=== PATIENT | female | born 1985 | race Caucasian/White ===

== ENCOUNTER 2019-06-28 05:18 | Outpatient (CLI) | payer OTHER | END 2019-06-28 05:19 | disposition home or self-care (01) | LOC: LAB 05:18 | PROVIDERS: ATTEND Student in an Organized Health Care Education/Training Program | DX: Z32.00 Encounter for pregnancy test, result unknown (principal) | CPT/HCPCS: 36415; 84702 ==

== ENCOUNTER 2019-06-30 04:49 | Outpatient (CLI) | payer OTHER | END 2019-06-30 04:50 | disposition home or self-care (01) | LOC: LAB 04:49 | PROVIDERS: ATTEND Student in an Organized Health Care Education/Training Program | DX: Z32.00 Encounter for pregnancy test, result unknown (principal) | CPT/HCPCS: 36415; 84443; 84702 ==

== ENCOUNTER 2019-07-15 17:12 | Outpatient (CLI) | payer OTHER | END 2019-07-15 17:13 | disposition home or self-care (01) | LOC: LAB 17:12 | PROVIDERS: ATTEND Student in an Organized Health Care Education/Training Program | DX: Z32.00 Encounter for pregnancy test, result unknown (principal) | CPT/HCPCS: 36415; 84702 ==

== ENCOUNTER 2021-05-04 12:14 | Outpatient (CLI) | payer OTHER ==
--- NOTE | 2021-05-06 09:44 | XRAY Report ---
PROCEDURE: Ankle 2 View LT INDICATIONS: L ANKLE PX TECHNIQUE: 2 weightbearing views of the ankle were acquired. COMPARISON: None FINDINGS: Bones: No fractures or dislocations. Ankle mortise is normally aligned. No suspicious bony lesions . The talar dome demonstrates an unremarkable appearance. Soft tissues: No tibiotalar joint effusion. Achilles tendon appears normal. IMPRESSION: Ankle plain film study within normal limits. If it would be helpful for clinical management decision making, please consider a dedicated ankle MRI for further evaluation (assuming that there is no contraindication). Reviewed by: Tato Mccloud MD on 05/06/2021 8:43 AM JESSICA Approved by: Tato Mccloud MD on 05/06/2021 8:43 AM JESSICA Station ID: [id number]
== END 2021-05-04 23:59 | disposition home or self-care (01) ==
LOC: DI.N 12:14
PROVIDERS: ATTEND Family Medicine
DX: M25.572 Pain in left ankle and joints of left foot (principal)